=== PATIENT | female | born 1955 | race Caucasian/White ===

== ENCOUNTER 2024-05-19 23:44 | Emergency (ER) | payer MEDICARE, OTHER, SELFPAY ==
[2024-05-19 23:58] VITALS: BP 120/80
--- NOTE | 2024-05-20 00:33 | ED.MUSCINJ ---
HPI-Injury
General
Chief Complaint: Musculo-Skeletal Complaint
Source: patient
Exam Limitations: none
Time Seen by Provider: 05/20/24 00:27
Nursing documentation reviewed up to this point in time: agreed with
History of Present Illness-Injury
Initial Injury comments:
Pleasant 69-year-old female presents with right shoulder pain. She was in the garage carrying boxes when she slipped and was unable to contain her fall. She landed on her right shoulder. Denies head injury or loss of consciousness.
Past History
Past History
ED Past Medical History: None and GERD
ED Past Surgical History: None, Cholecystectomy and Other (lumbar hemiectomy )
Patient has exhibited threatening behavior?: No
Social History
Tobacco: Non-smoker
Family History
Family History: CAD
Review of Systems
Review of Systems
Allergies reviewed?: Yes
All Other Systems: ROS reviewed and negative except as documented in HPI and ROS
Constitutional: Reports no symptoms
EENT: Reports no symptoms
Respiratory: Reports no symptoms
Cardiac: Reports no symptoms
ABD/GI: Reports no symptoms
: Reports no symptoms
Musculoskeletal: Reports joint pain and joint swelling
Skin: Reports no symptoms
Neurological: Reports no symptoms
Endocrine: Reports no symptoms
Hematologic/Lymphatic: Reports no symptoms
Psychiatric: Reports anxiety
Musculoskeletal Injury Exam
Musculoskeletal Injury Exam
Right Shoulder:
Pain with Movement?: Moderate
Tender to palpation?: Moderate
Soft tissue swelling?: Mild
External deformity and angulation?: None
Joint effusion?: None
Contusion?: None
Hematoma-local bleeding into tissue?: None
Phy Exam
General Physical Exam
General Presentation: well appearing and mild distress
General age: appears stated age
General Skin: warm and dry
General Habitus: normal
General Mental: alert
General Hydration: appears well hydrated
Cardiovascular Exam
Cardiovascular Exam: regular rate/rhythm, no edema, no murmur and normal peripheral pulses
Pulmonary Exam
Pulmonary Exam: lungs clear, no respiratory distress, no rales, no crackles, no rhonchi, no stridor, no wheezing and no cough
Neurological Exam
Neurological Exam: alert, oriented x3, no motor deficits and speech normal
Musculoskeletal Exam
Musculoskeletal Exam: joint swelling and neuro vasc intact (Good distal pulses)
Skin Exam
Skin Exam: normal color, warm/dry, no rash and no petechia
Psychiatric Exam
Psychiatric Exam: normal mood/affect
Injury Course
Orders/Labs/Results
Orders:
Orders
05/20/24 00:02
Shoulder, Right, Trauma [CR Shoulder, Trauma - Right] Urgent
Comment:
Reason For Exam: injury and pain
05/20/24 00:27
Sling Right-Treatment ONCE
05/20/24 00:33
Oxycodone/Acetaminophen [Percocet 5/325] 1 tablet PO NOW STA
*Critical Care Note
Total Time (30-74mins, 75-104mins- exclusive of procedures): Not Applicable
ED Attending Note
-
Portions of this chart may have been created with voice recognition software.� Occasional wrong word or��sound alike� substitutions may have occurred due to the inherent limitations of voice recognition software.
Discharge Plan
Departure
Patient Disposition: Home (Routine Discharge)
Date of Disposition: 05/20/24
Time of Disposition: 00:37
Patient with high blood pressure during this ER visit?: Yes
Condition: Good
Discharge Problem:
Fracture of head of humerus
Instructions: Muscle and Bone Pain (DC), How to Use a Shoulder Sling, Using Cold for Pain, BLOOD PRESSURE
Prescriptions:
No Action
hydrocodone-acetaminophen 7.5-325 mg Tablet
1 tab PO Q4HPRN PRN (Reason: severe pain)
Patient Comments:
10/03/23-patient filled on 04/18/23 #180
montelukast [Singulair] 10 mg Tablet
10 mg PO DAILY
nortriptyline 50 mg Capsule
50 mg PO HS
rosuvastatin [Crestor] 20 mg Tablet
20 mg PO DAILY
bupropion HCl [Wellbutrin XL] 300 mg Tablet Extended Release 24 Hr
300 mg PO DAILY
pregabalin [Lyrica] 50 mg Capsule
50 mg PO BIDPRN PRN (Reason: heavy activies)
Patient Comments:
10/03/23--patient filled on -12/20- #270
doxycycline hyclate 100 mg Capsule
100 mg PO Q12 Qty: 10 0RF
cefdinir 300 mg Capsule
300 mg PO Q12 Qty: 10 0RF
Referrals:
Oli Beal MD [Active] - Next open appointment
Kaylin Olguin MD [Family Provider] -
Activity Restrictions/Additional Instructions:
It was a pleasure meeting you and taking part in your care. We hope for your continued healing and wellness.
Please read discharge instructions in their entirety. However, they are for general education and may not describe your exact diagnosis at discharge. Information on your ER visit and medical conditions were discussed with you along with appropriate
follow up information...
If indicated, please take your medications as instructed and indicated on discharge paperwork.
Please schedule a follow up appointment as directed. Call to schedule an appointment
Please return to the emergency department with ANY change in, persisting, or worsening of symptoms. If any of your symptoms do not improve, or persist, or become more severe within 6-12 hours, please return to the emergency department for further
care.
Please return to the emergency department if you develop a headache, neck pain/stiffness, fever greater than 100.4F, chest pain, shortness of breath, persistent nausea, vomiting, slurred speech, difficulty walking, numbness/tingling, weakness, signs
of infection or any other symptoms that are worrisome to you.
If you have any questions or concerns please do not hesitate to call the Hospital at or E-mail me directly at [email or web address]
Interventions
Interventions:
*Risk Screen - Suicide Last Done: 05/20/24 00:40
*General Assessment Last Done: 05/20/24 00:40
*Neglect/Abuse Screening Last Done: 05/20/24 00:40
ED- Fall Risk Assessment Last Done: 05/20/24 00:40
*ED COVID-19 Vaccine History Last Done: 05/20/24 00:40
*Nursing Disposition Last Done: 05/20/24 01:30
ED-Musculoskeletal Assessment Last Done: 05/20/24 00:40
Discharge Date and Time
Discharge Date/Time: 05/20/24 01:30
Print Language: [email or web address]
[2024-05-20] MEDS: PERCOCET 5/325 1 TABLET PO (00:38)
== END 2024-05-20 01:30 | disposition home or self-care (01) ==
LOC: EMR 23:44
PROVIDERS: EMERGENCY PHYSICIAN Student in an Organized Health Care Education/Training Program; FAMILY PHYSICIAN Internal Medicine
DX: S42.291A Other displaced fracture of upper end of right humerus, initial encounter for closed fracture (principal); W18.39XA Other fall on same level, initial encounter; Y93.01 Activity, walking, marching and hiking; I10 Essential (primary) hypertension; E78.5 Hyperlipidemia, unspecified; K21.9 Gastro-esophageal reflux disease without esophagitis; M48.00 Spinal stenosis, site unspecified; Z90.49 Acquired absence of other specified parts of digestive tract
CPT/HCPCS: 99283; 29240; 73030

== ENCOUNTER → 2024-07-01 15:55 | Outpatient (REF) | payer MEDICARE, OTHER, SELFPAY | LOC: HWRAD 15:55 | PROVIDERS: ATTENDING PHYSICIAN Internal Medicine | DX: S06.0X0A Concussion without loss of consciousness, initial encounter (principal); G44.89 Other headache syndrome | CPT/HCPCS: 70450 ==